=== PATIENT | female | born 1970 | race Caucasian/White ===

== ENCOUNTER 2018-06-04 09:24 | Emergency (ER) | payer BC ==
[2018-06-04] MEDS: ACETAMINOPHEN 325 MG TAB PO (10:22)
[2018-06-04] MEDS: predniSONE 20 MG TAB PO (10:22)
[2018-06-04] MEDS: ALBUTEROL 0.083% (NEB) 2.5 MG/3 ML AMP HHN (10:42)
== END 2018-06-04 12:35 | disposition home or self-care (01) ==
LOC: FTE 09:24
DX: R05 Cough (principal)
CPT/HCPCS: 71045; 94664; 99283-25